=== PATIENT | male | born 1970 | race Caucasian/White ===

== ENCOUNTER 2020-10-07 20:14 | Inpatient (IN) | payer SELFPAY ==
[2020-10-07] MEDS ORDERED: Cefepime 2 GM VIAL ONE (21:47)
[2020-10-07] MEDS ORDERED: Acetaminophen 500 MG TAB ONE (21:47)
[2020-10-07 21:54] LABS: #Basophils 0.1 10x3/uL (0.0-0.2); #Eosinphils 0.2 10x3/uL (0.0-0.5); #Neutrophils 6.8 10x3/uL (1.5-8.4); %Basophils 0.5 % (0.0-2.0); %Eosinophils 1.7 % (0.0-6.0); %Lymphocytes 32.1 % (18.0-47.0); %Monocytes 7.9 % (0.0-10.0); %Neutrophils 56.7 % (40.0-75.0); Hemoglobin 12.7 g/dL (13.5-17.5); Mean Corpuscular HGB CONC 33.2 g/dL (32.0-36.0); Mean Corpuscular Hemoglobin 31.1 pg (27.0-33.0); Mean Corpuscular Volume 93.4 fl (81.2-95.1); Mean Platelet Volume 9.2 fl (7.4-10.4); Platelet Count 283 10x3/uL (150-450); RBC Distribution Width 12.8 % (11.5-14.5); Red Blood Cell (RBC) Count 4.09 10x6/uL (4.32-5.72)
[2020-10-07 22:25] LABS: ALT (SGPT) 23 U/L (8-55); AST (SGOT) 19 U/L (5-34); Albumin 3.9 g/dL (3.5-5.0); Alkaline Phosphatase 100 U/L (40-110); Anion Gap 14 mmol/L (10-20); BUN (Urea Nitrogen) 15 mg/dL (8.4-25.7); Bilirubin, Total 0.4 mg/dL (0.2-1.2); Calc. Creatinine Clearance 0 mL/min (70-130); Calcium 9.8 mg/dL (7.8-10.44); Carbon Dioxide 24 mmol/L (22-29); Chloride 104 mmol/L (98-107); Globulin 3.5 g/dL (2.4-3.5); Glucose 133 mg/dL (70-105); Potassium 3.7 mmol/L (3.5-5.1); Protein, Total 7.4 g/dL (6.0-8.3); Sodium 138 mmol/L (136-145)
[2020-10-07] MEDS ORDERED: Senokot S 8.6-50 MG TAB PO PRN (23:30)
[2020-10-07] MEDS ORDERED: Dextrose 50% Abboject 50 ML SYRINGE SLOW IVP PRN (23:30)
[2020-10-07] MEDS ORDERED: Zolpidem Tartrate 5 MG TAB PO PRN (23:30)
[2020-10-07] MEDS ORDERED: HumaLOG 300 UNITS/3 ML VIAL SC PRN (23:30)
[2020-10-07] MEDS ORDERED: Ondansetron PF 4 MG/2 ML Vial IVP PRN (23:30)
[2020-10-07] MEDS ORDERED: HYDROcodone/Acetaminophen 5/325 mg Tablet PO PRN (23:30)
[2020-10-07] MEDS ORDERED: Dextrose 5% in Water 1,000 ML IV PRN (23:30)
[2020-10-07] MEDS ORDERED: Calcium Carbonate 500 MG ChewTAB PO PRN (23:30)
[2020-10-07] MEDS ORDERED: Acetaminophen 325 MG TAB PO PRN (23:30)
[2020-10-07] MEDS ORDERED: Guaifenesin DM 100-10/5 ML UDCUP PO PRN (23:30)
[2020-10-07] MEDS ORDERED: Morphine 2 MG/ML VIAL SLOW IVP PRN (23:32)
[2020-10-07] MEDS ORDERED: Ibuprofen 200 MG TAB PO PRN (23:33)
[2020-10-07] MEDS ORDERED: Lactated Ringer's 1,000 ML IV SCH (23:45)
[2020-10-08 02:19] LABS: SARS-CoV-2 NAA Rapid Test Not Detected (NotDetected)
[2020-10-08 06:26] LABS: #Basophils 0.1 10x3/uL (0.0-0.2); #Eosinphils 0.2 10x3/uL (0.0-0.5); #Neutrophils 5.2 10x3/uL (1.5-8.4); %Basophils 0.6 % (0.0-2.0); %Eosinophils 2.2 % (0.0-6.0); %Lymphocytes 37.6 % (18.0-47.0); %Monocytes 9.6 % (0.0-10.0); %Neutrophils 49.1 % (40.0-75.0); Hemoglobin 12.4 g/dL (13.5-17.5); Mean Corpuscular HGB CONC 32.8 g/dL (32.0-36.0); Mean Corpuscular Hemoglobin 31.2 pg (27.0-33.0); Mean Corpuscular Volume 95.2 fl (81.2-95.1); Mean Platelet Volume 9.3 fl (7.4-10.4); Platelet Count 260 10x3/uL (150-450); RBC Distribution Width 12.7 % (11.5-14.5); Red Blood Cell (RBC) Count 3.97 10x6/uL (4.32-5.72); White Blood Cell (WBC) Count 10.5 10x3/uL (3.5-10.5)
[2020-10-08 06:43] LABS: Anion Gap 12 mmol/L (10-20); BUN (Urea Nitrogen) 12 mg/dL (8.4-25.7); CRP (Inflammatory) 11.42 mg/dL (= or < 0.5); Calc. Creatinine Clearance 0 mL/min (70-130); Calcium 9.2 mg/dL (7.8-10.44); Carbon Dioxide 21 mmol/L (22-29); Chloride 110 mmol/L (98-107); Glucose 126 mg/dL (70-105); Sodium 139 mmol/L (136-145)
[2020-10-08] MEDS ORDERED: Enoxaparin Sodium 40 MG/0.4 ML SYRINGE ONE (08:24)
[2020-10-08] MEDS ORDERED: Cefepime 1 GM VIAL ONE (08:24)
[2020-10-08] MEDS ORDERED: Cefepime 1 GM in Sodium Chloride 0.9% 100 ML IVPB SCH (09:00)
[2020-10-08] MEDS ORDERED: Enoxaparin Sodium 40 MG/0.4 ML SYRINGE SC SCH (09:00)
[2020-10-08] MEDS ORDERED: Nicotine 21 MG PATCH TD SCH (09:00)
[2020-10-08 11:31] LABS: Hemoglobin A1c 6.6 % (4.0-6.0)
[2020-10-08 12:11] VITALS: BMI 27.1
[2020-10-08] MEDS ORDERED: VANCOMYCIN 1.75 GM/350 ML BAG 1.75 GM in Premix Bag 1 BAG IVPB SCH (14:00)
== END 2020-10-08 16:01 | disposition home or self-care (01) | DRG 872 ==
LOC: CSHERS 20:14 → CSHERHOLD 10-08 10:49
PROVIDERS: ADMIT Emergency Medicine; ATTEND Emergency Medicine
DX: A41.9 Sepsis, unspecified organism (principal); L03.113 Cellulitis of right upper limb; Z20.822 Contact with and (suspected) exposure to COVID-19; E86.0 Dehydration; R73.03 Prediabetes; Z86.14 Personal history of Methicillin resistant Staphylococcus aureus infection; Z90.89 Acquired absence of other organs; F17.210 Nicotine dependence, cigarettes, uncomplicated
CPT/HCPCS: 36416; 80048; 80053; 83036; 83605; 85025; 86140; 87040; 93005; 96365; 96366; J0692; J1650; J3370; J3490; J7120; U0002